=== PATIENT | male | born 1990 | race Caucasian/White ===

== ENCOUNTER 2017-01-01 05:53 | Emergency (ER) | payer MEDICAID, OTHER ==
[2017-01-01] MEDS ORDERED: CLINDAMYCIN 150 MG CAP As Ordered ONE (06:28)
[2017-01-01] MEDS ORDERED: NORCO 5/325MG TABLET (BULK) As Ordered ONE (06:28)
--- NOTE | 2017-01-01 06:36 | EDDOCDS ---
Physician Documentation [facility] Name: Jaspreet Daily Age: 26 yrs Sex: Male : 1990 Arrival Date: 01/01/2017 Time: 05:53 Bed 6 Private MD: Disposition: 01/01/17 06:26 Discharged to Home/Self Care. Impression: Dental caries. - Condition is Stable. - Discharge Instructions: Dental Abscess, Dental Pain. - Prescriptions for Clindamycin HCl 300 mg Oral Capsule - take 1 capsule by ORAL route every 6 hours; 40 capsule. Ibuprofen 800 mg Oral Tablet - take 1 tablet by ORAL route every 12 hours As needed take with food; 20 tablet. [place] 5- 325 mg Oral Tablet - take 1 tablet by ORAL route every 6 hours As needed MDD: 4 tabs; 20 tablet. - Medication Reconciliation, Local Pharmacy Hours form. - Follow up: Private Physician; When: As previously arranged; Reason: Continuance of care. - Problem is an acute exacerbation. - Symptoms have improved. Historical: - Allergies: PENICILLINS; Amoxicillin; - Home Meds: 1. folic acid 1 mg Oral tab once daily 2. metoprolol tartrate 50 mg Oral tab 2 tabs 2 times per day 3. levetiracetam 250 mg oral tab 2 tabs 2 times per day 4. mexiletine 150 mg Oral cap every 8 hours 5. Cartia XT 180 mg Oral cp24 1 cap once daily - PMHx: [place]; Hypertension; - PSHx: Pacer/ICD insertion; - Social history: Smoking status: Patient states former smoker of tobacco. No barriers to communication noted, The patient speaks fluent Spanish. - Family history: No immediate family members are acutely ill. - : The pt / caregiver states he / she is not on anticoagulants. Home medication list is obtained from the patient. - Exposure Risk Screening:: None identified. Vital Signs: 01/01 06:00 BP 159 / 92; Pulse 64; Resp 18 S; Temp 100.7(TE); Pulse Ox 100% on R/A; Weight 72.57 kg af2 / 159.99 lbs (R); Height 5 ft. 9 in. (175.26 cm) (R); Pain 10/10; 06:00 Body Mass Index 23.63 (72.57 kg, 175.26 cm) af2 MDM: 06:25 Clindamycin 300 mg PO once ordered. mm11 06:25 HYDROcodone-acetaminophen 4 pack- 5 mg-325 mg 1 packets PO Per package directions; mm11 Dispense with patient. 1 po q4h prn for pain ordered. Administered Medications: 06:33 Drug: Clindamycin 300 mg [clindamycin 150 mg capsule (2 caps)] Route: PO; nn1 06:33 Drug: HYDROcodone-acetaminophen 4 pack- 1 packets [hydrocodone 5 mg-acetaminophen 325 nn1 mg tablet (1 tabs)] {Co-Signature: kai2 (Catalina Santa RN).} Route: PO; Signatures: Jair Fernandes, DO MAHONEY mm11 Rosy Bell RN RN af2 Rosalina Khoury RN RN nn1 Catalina kaba MTDD
--- NOTE | 2017-01-01 06:36 | EDDOCDS ---
Nurse's Notes [facility] Name: Jaspreet Daily Age: 26 yrs Sex: Male : 1990 Arrival Date: 01/01/2017 Time: 05:53 Bed 6 Private MD: Diagnosis: Dental caries Presentation: 01/01 06:02 Presenting complaint: Patient states: tooth infection to 2 upper teeth on left side of af2 mouth x 1 day. pain increase to area, head, face, and neck. Adult Sepsis Screening: The patient does not have new or worsening altered mentation. Patient's respiratory rate is less than 22. Systolic blood pressure is greater than 100. Patient has a qSOFA score of 0- Negative Sepsis Screen. Suicide/Homicide risk assessment- the patient denies having any suicidal and/or homicidal ideations and does not present with any other emotional, behavioral or mental health complaints. Status: Patient is not a customer service agent or dependent. Transition of care: patient was not received from another setting of care. 06:02 Acuity: DARIO Level 3 af2 06:02 Method Of Arrival: Ambulance af2 Triage Assessment: 06:07 General: Appears in no apparent distress, Behavior is cooperative. Pain: Location: af2 mouth Pain currently is 10 out of 10 on a pain scale. Pt Declines HIV testing. EENT: Reports pain to left upper side of mouth. Respiratory: Airway is patent Respiratory effort is even, unlabored. Derm: Skin is normal. Historical: - Allergies: PENICILLINS; Amoxicillin; - Home Meds: 1. folic acid 1 mg Oral tab once daily 2. metoprolol tartrate 50 mg Oral tab 2 tabs 2 times per day 3. levetiracetam 250 mg oral tab 2 tabs 2 times per day 4. mexiletine 150 mg Oral cap every 8 hours 5. Cartia XT 180 mg Oral cp24 1 cap once daily - PMHx: [place]; Hypertension; - PSHx: Pacer/ICD insertion; - Social history: Smoking status: Patient states former smoker of tobacco. No barriers to communication noted, The patient speaks fluent [place] Citizen. - Family history: No immediate family members are acutely ill. - : The pt / caregiver states he / she is not on anticoagulants. Home medication list is obtained from the patient. - Exposure Risk Screening:: None identified. Screenin:34 Screening information is obtained from the patient. Fall risk: No risks identified. nn1 Assistance ADL's: requires no assistance with activities of daily living. Abuse/DV Screen: The patient / caregiver reports he/she is: not in a situation that causes fear, pain or injury. Nutritional screening: No deficits noted. Advance Directives: Currently, there is no health care proxy. home support is adequate. Assessment: 06:25 General: Appears in no apparent distress, uncomfortable, Behavior is appropriate for nn1 age, crying. Neurological: No deficits noted. EENT: Oral mucosa is moist. Poor dentition noted. Dental caries noted in upper left first bicuspid (#12) and upper left second bicuspid (#13) Absence of teeth noted throughout mouth, black and chipped teeth noted. . Respiratory: Airway is patent Respiratory effort is even, unlabored, Respiratory pattern is regular, symmetrical. GI: No deficits noted. Derm: Skin is pink, warm & dry. Vital Signs: 06:00 BP 159 / 92; Pulse 64; Resp 18 S; Temp 100.7(TE); Pulse Ox 100% on R/A; Weight 72.57 kg af2 (R); Height 5 ft. 9 in. (175.26 cm) (R); Pain 10/10; 06:00 Body Mass Index 23.63 (72.57 kg, 175.26 cm) af2 Vitals: 06:00 Log In Time: January 01, 2017 at 05:55. af2 ED Course: 05:55 Patient visited by Yasmine Herman Reg. hs2 05:55 Patient moved to Waiting hs2 06:03 Triage Initiated af2 06:08 Patient visited by Rosy Bell RN. af2 06:08 Patient moved to 6 af2 06:13 Jair Fernandes DO is Attending Physician. mm11 06:13 Patient visited by Jair Fernandes DO. mm11 06:25 Patient visited by Jair Fernandes DO. mm11 06:34 No IV's were initiated during this patient's visit. No procedures done that require nn1 assistance. 06:35 The patient / caregiver is instructed regarding the plan of care and ED course. nn1 Administered Medications: 06:33 Drug: Clindamycin 300 mg [clindamycin 150 mg capsule (2 caps)] Route: PO; nn1 06:33 Drug: HYDROcodone-acetaminophen 4 pack- 1 packets [hydrocodone 5 mg-acetaminophen 325 nn1 mg tablet (1 tabs)] {Co-Signature: sendy (Catalina Santa RN).} Route: PO; Order Results: There are currently no results for this order. Outcome: 06:26 Discharge ordered by Provider. mm11 06:34 Discharge Assessment: Patient awake, alert and oriented x 3. No cognitive and/or nn1 functional deficits noted. Patient verbalized understanding of disposition instructions. patient administered narcotics - yes. Pt provided with safe discharge. The following High Risk Discharge criteria are identified: None. Discharged to home ambulatory, with family. Condition: stable Condition: unchanged. Prescriptions given X 3. No special radiology studies were completed. Property :Personal belongings accompany Pt. 06:35 Patient left the ED. nn1 Signatures: Jair Fernandes, DO mm11 Rosy BellRN RN af2 Rosalina Khoury RN RN nn1 Yasmine Herman, Reg Reg hs2 Catalina quinn2 MTDD
--- NOTE | 2017-01-03 07:36 | EDDOCDS ---
Physician Documentation [facility] Name: Jaspreet Daily Age: 26 yrs Sex: Male : 1990 Arrival Date: 01/01/2017 Time: 05:53 Bed 6 Private MD: Disposition: 01/01/17 06:26 Discharged to Home/Self Care. Impression: Dental caries. - Condition is Stable. - Discharge Instructions: Dental Abscess, Dental Pain. - Prescriptions for Clindamycin HCl 300 mg Oral Capsule - take 1 capsule by ORAL route every 6 hours; 40 capsule. Ibuprofen 800 mg Oral Tablet - take 1 tablet by ORAL route every 12 hours As needed take with food; 20 tablet. [place] 5- 325 mg Oral Tablet - take 1 tablet by ORAL route every 6 hours As needed MDD: 4 tabs; 20 tablet. - Medication Reconciliation, Local Pharmacy Hours form. - Follow up: Private Physician; When: As previously arranged; Reason: Continuance of care. - Problem is an acute exacerbation. - Symptoms have improved. Historical: - Allergies: PENICILLINS; Amoxicillin; - Home Meds: 1. folic acid 1 mg Oral tab once daily 2. metoprolol tartrate 50 mg Oral tab 2 tabs 2 times per day 3. levetiracetam 250 mg oral tab 2 tabs 2 times per day 4. mexiletine 150 mg Oral cap every 8 hours 5. Cartia XT 180 mg Oral cp24 1 cap once daily - PMHx: [place]; Hypertension; - PSHx: Pacer/ICD insertion; - Social history: Smoking status: Patient states former smoker of tobacco. No barriers to communication noted, The patient speaks fluent Korean. - Family history: No immediate family members are acutely ill. - : The pt / caregiver states he / she is not on anticoagulants. Home medication list is obtained from the patient. - Exposure Risk Screening:: None identified. Vital Signs: 01/01 06:00 BP 159 / 92; Pulse 64; Resp 18 S; Temp 100.7(TE); Pulse Ox 100% on R/A; Weight 72.57 kg af2 / 159.99 lbs (R); Height 5 ft. 9 in. (175.26 cm) (R); Pain 10/10; 06:00 Body Mass Index 23.63 (72.57 kg, 175.26 cm) af2 MDM: 06:25 Clindamycin 300 mg PO once ordered. mm11 06:25 HYDROcodone-acetaminophen 4 pack- 5 mg-325 mg 1 packets PO Per package directions; mm11 Dispense with patient. 1 po q4h prn for pain ordered. 06:39 [facility] Payment Agreement was scanned into [employer] and attached to record. hs2 06:39 Financial registration complete. hs2 13:31 T-Sheet-- Draft Copy was scanned into [employer] and attached to record. gb Administered Medications: 06:33 Drug: Clindamycin 300 mg [clindamycin 150 mg capsule (2 caps)] Route: PO; nn1 06:33 Drug: HYDROcodone-acetaminophen 4 pack- 1 packets [hydrocodone 5 mg-acetaminophen 325 nn1 mg tablet (1 tabs)] {Co-Signature: kai2 (Catalina Santa RN).} Route: PO; Signatures: Kyleigh Valencia, Reg Reg gb Jair Fernandes, DO mm11 Rosy Bell RN RN af2 Rosalina Khoury RN RN nn1 Yasmine Herman, Reg Reg hs2 Catalina quinn2 The chart was reviewed and I authenticate all verbal orders and agree with the evaluation and treatment provided.Attachments: 06:39 [facility] Payment Agreement hs2 13:31 T-Sheet-- Draft Copy gb Chart Complete MTDD
--- NOTE | 2017-01-03 07:36 | EDDOCDS ---
Physician Documentation [facility] Name: Jaspreet Daily Age: 26 yrs Sex: Male : 1990 Arrival Date: 01/01/2017 Time: 05:53 Bed 6 Private MD: Disposition: 01/01/17 06:26 Discharged to Home/Self Care. Impression: Dental caries. - Condition is Stable. - Discharge Instructions: Dental Abscess, Dental Pain. - Prescriptions for Clindamycin HCl 300 mg Oral Capsule - take 1 capsule by ORAL route every 6 hours; 40 capsule. Ibuprofen 800 mg Oral Tablet - take 1 tablet by ORAL route every 12 hours As needed take with food; 20 tablet. [place] 5- 325 mg Oral Tablet - take 1 tablet by ORAL route every 6 hours As needed MDD: 4 tabs; 20 tablet. - Medication Reconciliation, Local Pharmacy Hours form. - Follow up: Private Physician; When: As previously arranged; Reason: Continuance of care. - Problem is an acute exacerbation. - Symptoms have improved. Historical: - Allergies: PENICILLINS; Amoxicillin; - Home Meds: 1. folic acid 1 mg Oral tab once daily 2. metoprolol tartrate 50 mg Oral tab 2 tabs 2 times per day 3. levetiracetam 250 mg oral tab 2 tabs 2 times per day 4. mexiletine 150 mg Oral cap every 8 hours 5. Cartia XT 180 mg Oral cp24 1 cap once daily - PMHx: [place]; Hypertension; - PSHx: Pacer/ICD insertion; - Social history: Smoking status: Patient states former smoker of tobacco. No barriers to communication noted, The patient speaks fluent Occitan. - Family history: No immediate family members are acutely ill. - : The pt / caregiver states he / she is not on anticoagulants. Home medication list is obtained from the patient. - Exposure Risk Screening:: None identified. Vital Signs: 01/01 06:00 BP 159 / 92; Pulse 64; Resp 18 S; Temp 100.7(TE); Pulse Ox 100% on R/A; Weight 72.57 kg af2 / 159.99 lbs (R); Height 5 ft. 9 in. (175.26 cm) (R); Pain 10/10; 06:00 Body Mass Index 23.63 (72.57 kg, 175.26 cm) af2 MDM: 06:25 Clindamycin 300 mg PO once ordered. mm11 06:25 HYDROcodone-acetaminophen 4 pack- 5 mg-325 mg 1 packets PO Per package directions; mm11 Dispense with patient. 1 po q4h prn for pain ordered. 06:39 [facility] Payment Agreement was scanned into [employer] and attached to record. hs2 06:39 Financial registration complete. hs2 13:31 T-Sheet-- Draft Copy was scanned into [employer] and attached to record. gb Administered Medications: 06:33 Drug: Clindamycin 300 mg [clindamycin 150 mg capsule (2 caps)] Route: PO; nn1 06:33 Drug: HYDROcodone-acetaminophen 4 pack- 1 packets [hydrocodone 5 mg-acetaminophen 325 nn1 mg tablet (1 tabs)] {Co-Signature: [email or web address] (Catalina Santa RN).} Route: PO; Signatures: Kyleigh Valencia, Reg Reg gb Jair Fernandes, DO mm11 Rosy Bell RN RN af2 Rosalina Khoury RN RN nn1 Yasmine Herman, Reg Reg hs2 Catalina quinn2 The chart was reviewed and I authenticate all verbal orders and agree with the evaluation and treatment provided.Attachments: 06:39 [facility] Payment Agreement hs2 13:31 T-Sheet-- Draft Copy gb Chart Complete MTDD
--- NOTE | 2017-01-03 07:36 | EDDOCDS ---
Nurse's Notes [facility] Name: Jaspreet Daily Age: 26 yrs Sex: Male : 1990 Arrival Date: 01/01/2017 Time: 05:53 Bed 6 Private MD: Diagnosis: Dental caries Presentation: 01/01 06:02 Presenting complaint: Patient states: tooth infection to 2 upper teeth on left side of af2 mouth x 1 day. pain increase to area, head, face, and neck. Adult Sepsis Screening: The patient does not have new or worsening altered mentation. Patient's respiratory rate is less than 22. Systolic blood pressure is greater than 100. Patient has a qSOFA score of 0- Negative Sepsis Screen. Suicide/Homicide risk assessment- the patient denies having any suicidal and/or homicidal ideations and does not present with any other emotional, behavioral or mental health complaints. Status: Patient is not a customer service teller or dependent. Transition of care: patient was not received from another setting of care. 06:02 Acuity: DARIO Level 3 af2 06:02 Method Of Arrival: Ambulance af2 Triage Assessment: 06:07 General: Appears in no apparent distress, Behavior is cooperative. Pain: Location: af2 mouth Pain currently is 10 out of 10 on a pain scale. Pt Declines HIV testing. EENT: Reports pain to left upper side of mouth. Respiratory: Airway is patent Respiratory effort is even, unlabored. Derm: Skin is normal. Historical: - Allergies: PENICILLINS; Amoxicillin; - Home Meds: 1. folic acid 1 mg Oral tab once daily 2. metoprolol tartrate 50 mg Oral tab 2 tabs 2 times per day 3. levetiracetam 250 mg oral tab 2 tabs 2 times per day 4. mexiletine 150 mg Oral cap every 8 hours 5. Cartia XT 180 mg Oral cp24 1 cap once daily - PMHx: [place]; Hypertension; - PSHx: Pacer/ICD insertion; - Social history: Smoking status: Patient states former smoker of tobacco. No barriers to communication noted, The patient speaks fluent [place]ese. - Family history: No immediate family members are acutely ill. - : The pt / caregiver states he / she is not on anticoagulants. Home medication list is obtained from the patient. - Exposure Risk Screening:: None identified. Screenin:34 Screening information is obtained from the patient. Fall risk: No risks identified. nn1 Assistance ADL's: requires no assistance with activities of daily living. Abuse/DV Screen: The patient / caregiver reports he/she is: not in a situation that causes fear, pain or injury. Nutritional screening: No deficits noted. Advance Directives: Currently, there is no health care proxy. home support is adequate. Assessment: 06:25 General: Appears in no apparent distress, uncomfortable, Behavior is appropriate for nn1 age, crying. Neurological: No deficits noted. EENT: Oral mucosa is moist. Poor dentition noted. Dental caries noted in upper left first bicuspid (#12) and upper left second bicuspid (#13) Absence of teeth noted throughout mouth, black and chipped teeth noted. . Respiratory: Airway is patent Respiratory effort is even, unlabored, Respiratory pattern is regular, symmetrical. GI: No deficits noted. Derm: Skin is pink, warm & dry. Vital Signs: 06:00 BP 159 / 92; Pulse 64; Resp 18 S; Temp 100.7(TE); Pulse Ox 100% on R/A; Weight 72.57 kg af2 (R); Height 5 ft. 9 in. (175.26 cm) (R); Pain 10/10; 06:00 Body Mass Index 23.63 (72.57 kg, 175.26 cm) af2 Vitals: 06:00 Log In Time: January 01, 2017 at 05:55. af2 ED Course: 05:55 Patient visited by Yasmine Herman Reg. hs2 05:55 Patient moved to Waiting hs2 06:03 Triage Initiated af2 06:08 Patient visited by Rosy Bell RN. af2 06:08 Patient moved to 6 af2 06:13 Jair Fernandes DO is Attending Physician. mm11 06:13 Patient visited by Jair Fernandes DO. mm11 06:25 Patient visited by Jair Fernandes DO. mm11 06:34 No IV's were initiated during this patient's visit. No procedures done that require nn1 assistance. 06:35 The patient / caregiver is instructed regarding the plan of care and ED course. nn1 06:39 [facility] was scanned into [employer] and attached to record. hs2 13:31 T-Sheet-- Draft Copy was scanned into [employer] and attached to record. gb Administered Medications: 06:33 Drug: Clindamycin 300 mg [clindamycin 150 mg capsule (2 caps)] Route: PO; nn1 06:33 Drug: HYDROcodone-acetaminophen 4 pack- 1 packets [hydrocodone 5 mg-acetaminophen 325 nn1 mg tablet (1 tabs)] {Co-Signature: [email or web address] (Catalina Santa RN).} Route: PO; Order Results: There are currently no results for this order. Outcome: 06:26 Discharge ordered by Provider. mm11 06:34 Discharge Assessment: Patient awake, alert and oriented x 3. No cognitive and/or nn1 functional deficits noted. Patient verbalized understanding of disposition instructions. patient administered narcotics - yes. Pt provided with safe discharge. The following High Risk Discharge criteria are identified: None. Discharged to home ambulatory, with family. Condition: stable Condition: unchanged. Prescriptions given X 3. No special radiology studies were completed. Property :Personal belongings accompany Pt. 06:35 Patient left the ED. nn1 Signatures: Kyleigh Valencia, Reg Reg gb Jair Fernandes, DO DO mm11 Rosy BellRN RN af2 Rosalina KhouryRN RN nn1 Yasmine Herman, Reg Reg hs2 Catalina quinn2 Chart Complete MTDD
== END 2017-01-01 06:35 | disposition home or self-care (01) ==
LOC: M ED 05:53
DX: K02.9 Dental caries, unspecified (principal); I10 Essential (primary) hypertension; I25.2 Old myocardial infarction; Z79.899 Other long term (current) drug therapy; Z88.0 Allergy status to penicillin; Z88.1 Allergy status to other antibiotic agents; Z95.810 Presence of automatic (implantable) cardiac defibrillator; Z87.891 Personal history of nicotine dependence

== ENCOUNTER 2017-02-25 22:30 | Emergency (ER) | payer OTHER ==
[~2017-02-25] VITALS: Ht 175.3 cm; Wt 72.6 kg
[2017-02-25] MEDS ORDERED: LEVETIRACETAM PO (22:38)
[2017-02-25] MEDS ORDERED: CART180C PO (22:38)
[2017-02-25] MEDS ORDERED: METO50TA2 PO (22:38)
[2017-02-25] MEDS ORDERED: MEXI15CA PO (22:38)
[2017-02-25] MEDS ORDERED: FOLI1TAB2 PO (22:38)
[2017-02-25] MEDS ORDERED: GABA-279 PO (22:38)
[2017-02-25] MEDS ORDERED: NORCO 5/325MG TABLET (BULK FOR ED) PO ONE (23:15)
[2017-02-25] MEDS ORDERED: CLINDAMYCIN 150 MG CAP PO ONE (23:15)
[2017-02-25] MEDS ORDERED: CLEO300C2 PO (23:16)
[2017-02-25] MEDS ORDERED: NORC1TAB4 PO (23:16)
[2017-02-25 23:23] VITALS: BP 125/61
== END 2017-02-25 23:24 | disposition home or self-care (01) ==
LOC: M ED 23:12
DX: K02.9 Dental caries, unspecified (principal); R68.84 Jaw pain; I25.10 Atherosclerotic heart disease of native coronary artery without angina pectoris; K06.9 Disorder of gingiva and edentulous alveolar ridge, unspecified; Z79.899 Other long term (current) drug therapy; Z88.0 Allergy status to penicillin; Z87.891 Personal history of nicotine dependence

== ENCOUNTER 2017-04-09 17:43 | Emergency (ER) | payer OTHER ==
[~2017-04-09] VITALS: Ht 175.3 cm; Wt 63.5 kg
[~2017-04-09 17:43] MED LIST: CART180C PO; CLEO300C2 PO; FOLI1TAB2 PO; GABA-279 PO; LEVETIRACETAM PO; METO50TA2 PO; MEXI15CA PO; NORC1TAB4 PO
[2017-04-09 17:44] VITALS: BP 131/70
[2017-04-09] MEDS ORDERED: CLEO300C2 PO (18:50)
[2017-04-09] MEDS ORDERED: PERC5TAB6 PO (18:51)
== END 2017-04-09 19:09 | disposition home or self-care (01) ==
LOC: M ED 18:58
DX: K08.89 Other specified disorders of teeth and supporting structures (principal); I51.9 Heart disease, unspecified; Z79.899 Other long term (current) drug therapy; Z88.0 Allergy status to penicillin; Z87.891 Personal history of nicotine dependence

== ENCOUNTER 2017-04-26 13:36 | Emergency (ER) | payer OTHER ==
[~2017-04-26] VITALS: Ht 175.3 cm; Wt 69.9 kg
[~2017-04-26 13:36] MED LIST changes: +PERC5TAB6 PO
[2017-04-26 13:53] VITALS: BP 135/76
[2017-04-26] MEDS ORDERED: CLEO300C2 PO (15:03)
[2017-04-26] MEDS ORDERED: ACET30TAB PO (15:03)
[2017-05-04] MEDS ORDERED: PERC5TAB6 PO (15:19)
== END 2017-04-26 15:09 | disposition home or self-care (01) ==
LOC: M ED 14:34
DX: K02.9 Dental caries, unspecified (principal); I25.2 Old myocardial infarction; J45.909 Unspecified asthma, uncomplicated; Z95.810 Presence of automatic (implantable) cardiac defibrillator; Z79.899 Other long term (current) drug therapy; Z88.0 Allergy status to penicillin; Z88.1 Allergy status to other antibiotic agents

== ENCOUNTER 2017-05-04 15:00 | Emergency (ER) | payer OTHER ==
[~2017-05-04] VITALS: Ht 172.7 cm; Wt 69.7 kg
[2017-05-04 15:00] VITALS: BP 128/72
[~2017-05-04 15:00] MED LIST changes: +ACET30TAB PO; -CART180C PO; +CART180C3 PO; -FOLI1TAB2 PO; +FOLI1TAB4 PO; -METO50TA2 PO; +METO50TA7 PO; +PERC5TAB12 PO; -PERC5TAB6 PO
[2017-05-04] MEDS ORDERED: PERC5TAB12 PO (15:19)
== END 2017-05-04 15:29 | disposition home or self-care (01) ==
LOC: M ED 15:23
DX: K08.89 Other specified disorders of teeth and supporting structures (principal); R51 Headache; I25.2 Old myocardial infarction; Z95.810 Presence of automatic (implantable) cardiac defibrillator; Z79.899 Other long term (current) drug therapy; Z88.0 Allergy status to penicillin; F17.210 Nicotine dependence, cigarettes, uncomplicated

== ENCOUNTER 2017-07-03 15:28 | Emergency (ER) | payer OTHER ==
[~2017-07-03] VITALS: Ht 177.8 cm; Wt 72.7 kg
[2017-07-03] MEDS ORDERED: MOTR200T44 PO (15:43)
[2017-07-03] MEDS ORDERED: CLINDAMYCIN 150 MG CAP PO ONE (17:15)
[2017-07-03] MEDS ORDERED: PERCOCET 5MG/325MG TAB PO ONE (17:15)
[2017-07-03] MEDS ORDERED: PERI0.126 MT (17:25)
[2017-07-03] MEDS ORDERED: PERC5TAB12 PO (17:32)
[2017-07-03] MEDS ORDERED: CLIN150C14 PO (17:34)
[2017-07-03 18:02] VITALS: BP 135/71
== END 2017-07-03 18:07 | disposition home or self-care (01) ==
LOC: M ED 15:28
DX: K02.9 Dental caries, unspecified (principal); J45.909 Unspecified asthma, uncomplicated; I25.2 Old myocardial infarction; Z95.0 Presence of cardiac pacemaker

== ENCOUNTER 2017-07-15 13:31 | Emergency (ER) | payer OTHER ==
[~2017-07-15] VITALS: Ht 175.3 cm; Wt 74.1 kg
[~2017-07-15 13:31] MED LIST changes: +CLIN150C14 PO; +MOTR200T44 PO; +PERI0.126 MT
[2017-07-15] MEDS ORDERED: CLEO300C2 PO (17:03)
[2017-07-15] MEDS ORDERED: NAPR500T PO (17:04)
[2017-07-15 17:17] VITALS: BP 143/79
[2017-07-15] MEDS ORDERED: CLINDAMYCIN 150 MG CAP PO ONE (17:30)
[2017-07-15] MEDS ORDERED: NAPROXEN 250 MG TAB PO ONE (17:30)
== END 2017-07-15 17:55 | disposition home or self-care (01) ==
LOC: M ED 13:31
DX: K08.89 Other specified disorders of teeth and supporting structures (principal); Z87.891 Personal history of nicotine dependence

== ENCOUNTER 2017-09-29 16:00 | Emergency (ER) | payer OTHER ==
[~2017-09-29] VITALS: Ht 175.3 cm; Wt 72.7 kg
[~2017-09-29 16:00] MED LIST changes: +NAPR500T PO
[2017-09-29] MEDS ORDERED: PERC5TAB12 PO (17:09)
[2017-09-29] MEDS ORDERED: CLEO300C2 PO (17:09)
[2017-09-29] MEDS ORDERED: CLINDAMYCIN 150 MG CAP PO ONE (17:15)
[2017-09-29] MEDS ORDERED: OXYCODONE/APAP 5MG/325MG(BULK FOR ED) 1 TABLET PO ONE (17:15)
[2017-09-29 17:32] VITALS: BP 131/86
== END 2017-09-29 17:34 | disposition home or self-care (01) ==
LOC: M ED 16:00
DX: K02.9 Dental caries, unspecified (principal); K04.7 Periapical abscess without sinus; S02.5XXA Fracture of tooth (traumatic), initial encounter for closed fracture; X58.XXXA Exposure to other specified factors, initial encounter; Y92.89 Other specified places as the place of occurrence of the external cause; Y93.89 Activity, other specified; Y99.9 Unspecified external cause status

== ENCOUNTER 2017-10-10 06:24 | Emergency (ER) | payer OTHER ==
[~2017-10-10] VITALS: Ht 172.7 cm; Wt 72.7 kg
[2017-10-10 06:31] VITALS: BP 146/71
[2017-10-10] MEDS ORDERED: PERCOCET 5MG/325MG TAB PO ONE (07:00)
[2017-10-10] MEDS ORDERED: PERC5TAB12 PO (07:07)
== END 2017-10-10 07:16 | disposition home or self-care (01) ==
LOC: M ED 06:24
DX: K02.9 Dental caries, unspecified (principal); S02.5XXA Fracture of tooth (traumatic), initial encounter for closed fracture; X58.XXXA Exposure to other specified factors, initial encounter; Y92.89 Other specified places as the place of occurrence of the external cause; Y93.89 Activity, other specified; Y99.8 Other external cause status; J45.909 Unspecified asthma, uncomplicated; I25.10 Atherosclerotic heart disease of native coronary artery without angina pectoris; Z79.899 Other long term (current) drug therapy; Z88.0 Allergy status to penicillin

== ENCOUNTER 2017-11-03 17:05 | Emergency (ER) | payer OTHER ==
[~2017-11-03] VITALS: Ht 172.7 cm; Wt 75.0 kg
--- NOTE | 2017-11-03 19:29 | ED PDOC ---
Post-Departure Follow-Up [facility] Reference #: [id number] Salvador Musa Nov 03, 2017 19:29
[2017-11-03] MEDS ORDERED: KEFL500C17 PO (19:33)
[2017-11-03] MEDS ORDERED: TRAM50TA2 PO (19:33)
[2017-11-03] MEDS ORDERED: IBUP-1022 PO (19:33)
[2017-11-03] MEDS ORDERED: FLON1SPR (19:33)
[2017-11-03 19:43] VITALS: BP 105/58
[2017-11-03] MEDS ORDERED: PERCOCET 5MG/325MG TAB PO ONE (20:00)
[2017-11-03] MEDS ORDERED: CEPHALEXIN 500 MG CAP PO ONE (20:00)
== END 2017-11-03 20:01 | disposition home or self-care (01) ==
LOC: M ED 17:05
DX: J30.2 Other seasonal allergic rhinitis (principal); H69.93 Unspecified Eustachian tube disorder, bilateral; K13.79 Other lesions of oral mucosa; Z95.0 Presence of cardiac pacemaker; Z87.891 Personal history of nicotine dependence

== ENCOUNTER 2017-12-08 21:24 | Emergency (ER) | payer OTHER ==
[2017-12-08] MEDS ORDERED: carBAMazepine 100 MG *1/2* TAB PO (23:15)
[2017-12-08] MEDS: ONDANSETRON 4 MG ORAL DISINTEGRATING TAB (S0181) PO (23:15)
[2017-12-08 23:26] LABS: ERYTHROCYTE SEDIMENTATION RATE 3 mm/hr (0-15)
[2017-12-08 23:27] LABS: CARBOXYHEMOGLOBIN 2.2 % (0.0-1.5)
[2017-12-08] MEDS: carBAMazepine 200 MG TAB PO (23:45)
== END 2017-12-09 00:04 | disposition home or self-care (01) ==
LOC: M ED 12-09 00:04
DX: R51 Headache (principal); I49.9 Cardiac arrhythmia, unspecified; Z95.0 Presence of cardiac pacemaker; Z87.891 Personal history of nicotine dependence
CPT/HCPCS: 70450

== ENCOUNTER 2018-06-28 12:40 | Emergency (ER) | payer OTHER ==
[2018-06-28 15:30] LABS: BASO % 0.3 % (0.0-1.0); EOS # 0.1 10^3/uL (0.0-0.50); EOS % 0.8 % (0.0-3.0); HEMOGLOBIN 15.8 g/dl (13.5-17.5); IMMATURE GRANULOCYTE % 0.2 % (0-3.0); LYMPH # 1.6 10^3/uL (1.5-6.5); LYMPH % 17.7 % (24.0-44.0); MEAN CORPUSCULAR HEMOGLOBIN 34.1 pg (27.0-33.0); MEAN CORPUSCULAR HGB CONC 35.9 g/dl (32.0-36.5); MONO # 0.3 10^3/uL (0.0-0.8); MONO % 3.6 % (0.0-5.0); NEUTROPHILS # 7.1 10^3/uL (1.8-7.7); NEUTROPHILS % 77.4 % (36.0-66.0); PLATELET COUNT, AUTOMATED 160 10^3/uL (150-450); RED BLOOD COUNT 4.63 10^6/uL (4.30-6.10); RED CELL DISTRIBUTION WIDTH 11.6 % (11.5-14.5); WHITE BLOOD COUNT 9.2 10^3/uL (4.0-10.0)
[2018-06-28 15:56] LABS: ANION GAP 9 MEQ/L (8-16); BLOOD UREA NITROGEN 8 MG/DL (7-18); CALCIUM LEVEL 9.7 MG/DL (8.5-10.1); CARBON DIOXIDE LEVEL 27 MEQ/L (21-32); CHLORIDE LEVEL 106 MEQ/L (98-107); CREATININE FOR GFR 0.95 MG/DL (0.70-1.30); GLOMERULAR FILTRATION RATE > 60.0 (>60); GLUCOSE, FASTING 102 MG/DL (70-100); POTASSIUM SERUM 4.3 MEQ/L (3.5-5.1); SODIUM LEVEL 142 MEQ/L (136-145)
== END 2018-06-28 16:42 | disposition home or self-care (01) ==
LOC: M ED 12:40
DX: K02.9 Dental caries, unspecified (principal); M26.602 Left temporomandibular joint disorder, unspecified
CPT/HCPCS: 70330

== ENCOUNTER 2018-11-30 16:46 | Emergency (ER) | payer OTHER ==
[~2018-11-30] VITALS: Ht 175.3 cm; Wt 72.7 kg
[~2018-11-30 16:46] MED LIST changes: +CARB20TA PO; +FLON1SPR; +FOLI1TAB11 PO; -FOLI1TAB4 PO; +GABA-1171 PO; -GABA-279 PO; +IBUP-1022 PO; +KEFL500C17 PO; +KEPP10002 PO; +NAPR-50 PO; -NAPR500T PO; +NORCOTAB PO; +TRAM50TA2 PO
[2018-11-30 16:47] VITALS: BP 130/81
[2018-11-30] MEDS ORDERED: CARV6.25 PO (16:56)
[2018-11-30] MEDS ORDERED: CLINDAMYCIN 150 MG CAP PO STA (17:16)
[2018-11-30] MEDS ORDERED: NORCOTAB PO ×2 (17:25→17:29)
[2018-11-30] MEDS ORDERED: CLEO300C2 PO ×2 (17:25→17:29)
[2018-11-30] MEDS ORDERED: LIDO1SOL7 PO ×2 (17:25→17:29)
[2018-11-30] MEDS ORDERED: LIDOCAINE VISCOUS 2% SOLN 15ML UDC SS ONE (17:30)
[2018-11-30] MEDS ORDERED: NORCO 5/325MG TABLET (BULK FOR ED) PO ONE (17:30)
== END 2018-11-30 17:40 | disposition home or self-care (01) ==
LOC: M ED 16:46
DX: K02.9 Dental caries, unspecified (principal); K05.219 Aggressive periodontitis, localized, unspecified severity; J45.909 Unspecified asthma, uncomplicated; I25.2 Old myocardial infarction; I42.2 Other hypertrophic cardiomyopathy; Z95.0 Presence of cardiac pacemaker; Z79.899 Other long term (current) drug therapy; Z88.0 Allergy status to penicillin

== ENCOUNTER 2019-02-26 15:20 | Emergency (ER) | payer OTHER ==
[~2019-02-26] VITALS: Ht 175.3 cm; Wt 68.2 kg
[2019-02-26 15:20] VITALS: BP 125/84
[~2019-02-26 15:20] MED LIST changes: +ACET-716 PO; -ACET30TAB PO; +CARV6.25 PO; +HYDR-3715 PO; +LIDO1SOL8 PO; -NAPR-50 PO; +NAPR-837 PO; -NORC1TAB4 PO; +NORC1TAB7 PO; -NORCOTAB PO
[2019-02-26] MEDS ORDERED: VENTAER (15:27)
[2019-02-26] MEDS ORDERED: MEXI15CA (15:27)
[2019-02-26] MEDS ORDERED: CYCL10TA (15:27)
[2019-02-26] MEDS ORDERED: LIDVISCBTL TOP (15:55)
[2019-02-26] MEDS ORDERED: CLEO300C2 PO (15:55)
[2019-02-26] MEDS ORDERED: NORC1TAB7 PO (15:56)
== END 2019-02-26 16:13 | disposition home or self-care (01) ==
LOC: M ED 15:20
DX: K02.9 Dental caries, unspecified (principal); J45.909 Unspecified asthma, uncomplicated; I25.2 Old myocardial infarction; Z79.899 Other long term (current) drug therapy; Z88.0 Allergy status to penicillin; Z87.891 Personal history of nicotine dependence